=== PATIENT | male | born 1950 | race Caucasian/White ===

== ENCOUNTER 2016-05-28 08:00 | Outpatient (CLI) | payer OTHER, MEDICARE | END 2016-05-28 08:01 | disposition home or self-care (01) | DX: Z12.11 Encounter for screening for malignant neoplasm of colon (principal) ==

== ENCOUNTER 2016-07-12 15:34 | Outpatient (CLI) | payer MEDICARE | END 2016-07-12 15:35 | disposition home or self-care (01) | DX: Z12.5 Encounter for screening for malignant neoplasm of prostate (principal) | CPT/HCPCS: 36415; G0103 ==

== ENCOUNTER 2016-07-27 11:12 | Day surgery (SDC) | payer MEDICARE ==
[2016-07-27] MEDS ORDERED: LACTATED RINGERS 1,000 ML IV ONE ×2 (11:45→14:50)
[2016-07-27] MEDS ORDERED: MIDAZOLAM 2 MG/2 ML VIAL IVP ONE (14:25)
[2016-07-27] MEDS ORDERED: fentaNYL 250 MCG/5 ML VIAL IVP ONE (14:25)
== END 2016-07-27 11:13 | disposition home or self-care (01) ==
PROC: 0DJD8ZZ Inspection of Lower Intestinal Tract, Via Natural or Artificial Opening Endoscopic (ICD-10-PCS; principal; 2016-07-27 12:00)
DX: Z12.11 Encounter for screening for malignant neoplasm of colon (principal); K62.89 Other specified diseases of anus and rectum; K64.8 Other hemorrhoids; K57.30 Diverticulosis of large intestine without perforation or abscess without bleeding
CPT/HCPCS: G0121; J3010; J7120

== ENCOUNTER 2017-01-19 13:57 | Outpatient (CLI) | payer MEDICARE ==
--- NOTE | 2017-01-19 19:08 | XRAY Report ---
TWO-VIEW RIGHT SHOULDER: 01/19/2017 CLINICAL INDICATION: Pain. FINDINGS: Internal and external rotational views of the right shoulder demonstrate moderate osteoart hritis of the glenohumeral and acromioclavicular joints. The humeral head appears high-riding, sugge stive of chronic rotator cuff tear. There is no evidence of acute fracture or dislocation. No radio paque foreign body is seen in the soft tissues. IMPRESSION: MODERATE OSTEOARTHRITIS, WITH POSSIBLE CHRONIC ROTATOR CUFF TEAR. JOB #: [id number] EXT JOB #:[id number]
== END 2017-01-19 13:58 | disposition home or self-care (01) ==
LOC: DI.S 13:57
PROVIDERS: ATTEND Family Medicine
DX: M25.511 Pain in right shoulder (principal); M19.011 Primary osteoarthritis, right shoulder

== ENCOUNTER 2017-10-11 14:54 | Outpatient (CLI) | payer MEDICARE ==
--- NOTE | 2017-10-11 17:46 | Ultrasound Report ---
LIMITED PELVIC ULTRASOUND: 10/11/2017 HISTORY: Right inguinal pain. TECHNIQUE: Real-time scanning by the nitrogen operator with saved static images reviewed. FINDINGS: In the right inguinal region, no evidence of a cystic or solid mass, fluid collection, adenopathy, or hernia is identified. IMPRESSION: NEGATIVE RIGHT GROIN ULTRASOUND. TD: 10/11/2017 15:47
== END 2017-10-11 14:55 | disposition home or self-care (01) ==
LOC: DI 14:54
PROVIDERS: ATTEND Nurse Practitioner Family
DX: R10.31 Right lower quadrant pain (principal)
CPT/HCPCS: 76857

== ENCOUNTER 2017-10-19 07:47 | Outpatient (CLI) | payer MEDICARE ==
--- NOTE | 2017-10-19 17:51 | MRI Report ---
Procedure Date: 10/19/2017 Accession Number: [id number] / [id number] Procedure: MRI - Lumbar Spine W/O CPT Code: FULL RESULT: EXAM: MRI LUMBAR SPINE WITHOUT CONTRAST EXAM DATE: 10/19/2017 08:33 AM. CLINICAL HISTORY: Back pain, lumbar, inguinal pain, right. COMPARISON: None. TECHNIQUE: Multiplanar, multisequence T1-weighted and fluid-sensitive sequences of the lumbar spine from T12 to S1 without contrast. Other: None. FINDINGS: There is a mild degree of straightening of the normal lumbar lordosis. There is a mild degree of desiccation of the intervertebral disk spaces throughout the lumbar spine. There is a grade 1 anterolisthesis of L4 on L5. There is a mild decrease in the height of the disk at L1-L2, L2-L3, L3-L4, L4-L5 and L5-S1. The conus terminates at the inferior endplate level of T12. There is a mild degree at T12 hyperintensity consistent with Modic type I endplate degenerative change within the L4-L5 and L3-L4 endplates. There is spondylosis of the endplates demonstrated throughout the lumbar spine. There is a synovial cyst posterior to the right L5-S1 facet. There is atrophy of the paraspinal musculature which is greatest at the L1-L2 level. This is only partially within the provided [id number] (24, 601). Below the L1-L2 level the degree of paraspinal atrophy is reduced to minimal. There is no significant psoas atrophy on the left. The right psoas muscle is smaller than that of the right. This may potentially be within anatomical variation. The abdominal aorta is of normal caliber. There is a T2 hyperintense lesion of the interpolar region of the right kidney measuring 12 mm, and a smaller 3 mm hyperintensity of the interpolar region of the left kidney. These are consistent with simple-appearing renal cysts. L1-L2: There is a small disk osteophyte complex producing a mild central canal stenosis. There is mild ligamentum flavum hypertrophy. There is minimal left facet arthropathy. There is mild right and left foraminal stenosis. L2-L3: There is a small disk osteophyte complex producing a minimal central canal stenosis. There is mild right facet arthropathy. There is mild right and mild to moderate left foraminal stenosis. L3-L4: There is a small disk osteophyte complex abutting the sac producing a minimal central canal stenosis. There is mild right facet arthropathy. There is mild ligamentum flavum hypertrophy. There is moderate right and mild to moderate left foraminal stenosis. L4-L5: There is a small disk osteophyte complex abutting the sac. There is mild ligamentum flavum hypertrophy. There is a moderate to severe degree of right lateral recess stenosis secondary to a combination of right-sided facet arthropathy, ligamentum flavum hypertrophy, and a disk osteophyte. This contacts and may compress the traversing right L5 nerve root. Recommend correlation for right L5 radiculopathy. Overall, there is a mild to moderate central canal stenosis. There is mild to moderate bilateral facet arthropathy. There is mild to moderate right foraminal stenosis and there is moderate to severe left foraminal stenosis secondary to the extension of facet arthropathy into the left foraminal space. Recommend correlation for left L4 radicular symptoms. L5-S1: There is a small disk osteophyte complex with annular tear but without significant central canal stenosis. There is mild left and moderate right facet arthropathy. There is mild to moderate left and mild right foraminal stenosis. IMPRESSION: 1. There is a small disk osteophyte complex at L4-L5 which in combination with ligamentum flavum hypertrophy produces a moderate to severe right lateral recess stenosis and may potentially produce entrapment of the traversing right L5 nerve root. Recommend correlation for right L5 radiculopathy. There is also extension of facet arthropathy into the left foraminal space which appears to produce a moderate to severe left foraminal stenosis and may produce left L4 radicular symptoms. Recommend correlation. Overall, there is a mild to moderate central canal stenosis. 2. There is a small disk osteophyte complex at L3-L4 producing a minimal central canal stenosis. 3. There is a minimal central canal stenosis from a small disk osteophyte complex at L2-L3. 4. There is a small disk osteophyte complex producing a mild central canal stenosis at L1-L2. 5. There appears to be atrophy of the paraspinal musculature at the L1-L2 level. This is only partially in the provided [id number]. Below this level there appears to be little atrophy. Comment: The following findings are so common in adults without low back pain that while we report their presence, they must be interpreted with caution and in the context of the clinical situation. (Reference Laurak et al, Spine 2001) Prevalence of findings in patients without low back pain: Disk degeneration (any evidence): 92% Disk desiccation/T2 signal loss: 83% Disk height loss: 56% Disk bulge: 64% Disk protrusion: 32% Annular tear/high intensity zone: 38% RADIA
== END 2017-10-19 07:48 | disposition home or self-care (01) ==
LOC: DI 07:47
PROVIDERS: ATTEND Family Medicine
DX: M51.36 Other intervertebral disc degeneration, lumbar region (principal); M47.896 Other spondylosis, lumbar region; M48.061 Spinal stenosis, lumbar region without neurogenic claudication
CPT/HCPCS: 72148

== ENCOUNTER 2017-12-29 08:23 | Outpatient (CLI) | payer MEDICARE | END 2017-12-29 08:24 | disposition home or self-care (01) | LOC: LAB.R 08:23 | PROVIDERS: ATTEND Family Medicine | DX: L08.89 Other specified local infections of the skin and subcutaneous tissue (principal) | CPT/HCPCS: 87070; 87205 ==

== ENCOUNTER 2018-02-08 12:00 | Outpatient (CLI) | payer MEDICARE | END 2018-02-08 12:01 | disposition home or self-care (01) | LOC: LAB.R 12:00 | PROVIDERS: ATTEND Nurse Practitioner Family | DX: L08.89 Other specified local infections of the skin and subcutaneous tissue (principal) | CPT/HCPCS: 87640 ==

== ENCOUNTER 2018-03-29 08:00 | Outpatient (CLI) | payer MEDICARE | END 2018-03-29 08:01 | disposition home or self-care (01) | LOC: LAB.R 08:00 | PROVIDERS: ATTEND Nurse Practitioner Family | DX: Z22.322 Carrier or suspected carrier of Methicillin resistant Staphylococcus aureus (principal) | CPT/HCPCS: 87081 ==

== ENCOUNTER 2018-05-14 04:58 | Outpatient (CLI) | payer MEDICARE | END 2018-05-14 04:59 | disposition EMS.NT | LOC: EMS 04:58 | PROVIDERS: ATTEND Surgery | DX: R10.9 Unspecified abdominal pain (principal) ==

== ENCOUNTER 2018-10-10 11:22 | Day surgery (SDC) | payer MEDICARE ==
--- NOTE | 2018-10-10 11:06 | ANESTHESIA ---
Pre-Anesthesia VS, & Labs - Diagnosis B Carpal Tunnel Syndrome - Procedure B CTR Vital Signs: Last Vital Signs Temp 36.5 C 10/10/18 11:54 Pulse 68 10/10/18 11:54 Resp 20 10/10/18 11:54 BP 129/79 10/10/18 11:54 Pulse Ox 95 10/10/18 11:54 Height 6 ft 2 in - NPO >8 hours Home Medications and Allergies Home Medications: Ambulatory Orders No Known Home Medications 10/09/18 No Known Home Medications 10/09/18 Allergies/Adverse Reactions: Allergies Allergy/AdvReac Type Severity Reaction Status Date / Time No Known Drug Allergies Allergy Verified 10/09/18 09:23 Anes History & Medical History - Anesthetic History Anesthesia Complications: reports: No previous complications Family history of Anesthesia Complications: Denies Family history of Malignant Hyperthermia: Denies - Medical History Cardiovascular: reports: None Pulmonary: reports: None Gastrointestinal: reports: None Urinary: reports: Kidney stones Musculoskeletal: reports: Osteoarthritis Endocrine/Autoimmune: reports: None Skin: reports: Other - Surgical History Eyes Ears Nose Throat (EENT): Tonsil/Adenoidectomy Orthopedic: Arthroscopic surgery Exam General: Alert, Oriented x3, Cooperative Mouth Opening: Greater than 4 Fingerbreadths Mallampati classification: I Thyromental Distance: 4-6 cm Respiratory: Lungs clear Cardiovascular: Regular rate Neurological: Normal gait, Normal speech Mental/Cognitive Status: Alert/Oriented X3, Normal for patient Cognitive Status: Within normal limits Plan Anesthesia Type: MAC Consent for Procedure(s) Verified and Reviewed: Yes Code Status: Attempt Resuscitation ASA classification: 2-Mild systemic disease Is this case an emergency?: No
[~2018-10-10 11:22] MED LIST: BUPIVACAINE 0.25% PF 10 ML VIAL ONE; CEFAZOLIN SODIUM IN 0.9 % NACL 2 GM/100 ML BAG IV ONE; LIDOCAINE 1%-EPI 1:100000 20 ML MDV ONE
[2018-10-10] MEDS ORDERED: LACTATED RINGERS 1,000 ML IV ONE (11:53)
[2018-10-10] MEDS ORDERED: KETOROLAC 30 MG/ML VIAL IVP ONE (12:20)
[2018-10-10] MEDS ORDERED: ONDANSETRON 4 MG/2 ML VIAL IVP ONE (12:20)
[2018-10-10] MEDS ORDERED: KETAMINE 500 MG/10 ML VIAL IVP ONE (12:20)
[2018-10-10] MEDS ORDERED: PROPOFOL 200 MG/20 ML VIAL IVP ONE (12:20)
[2018-10-10] MEDS ORDERED: MIDAZOLAM 2 MG/2 ML VIAL IVP ONE (12:20)
[2018-10-10] MEDS ORDERED: LIDOCAINE-MPF 2% 5 ML VIAL IM ONE (12:20)
[2018-10-10] MEDS ORDERED: oxyCODONE 5 MG TABLET PO PRN (13:14)
--- NOTE | 2018-10-10 14:24 | OPERATIVE REPORT ---
DATE OF SERVICE: 10/10/2018 Physician: Jose Pina MD PREOPERATIVE DIAGNOSIS: Bilateral carpal tunnel syndrome. POSTOPERATIVE DIAGNOSIS: Bilateral carpal tunnel syndrome. PROCEDURE PERFORMED: Bilateral carpal tunnel releases. SURGEON: Jose Pina MD. ANESTHESIA: Local, MAC, Cesar Bowie. INDICATIONS FOR SURGERY: Patient is a 68-year-old male with progressive severe bilateral carpal tunn el syndrome, who has failed nonoperative treatment and is symptomatic enough to warrant surgery and h as failed nonoperative care. FINDINGS AT SURGERY: Patient's right carpal tunnel show extreme constriction and erythema of the con tents and the median nerve in the carpal tunnel area, whereas the left hand, but was nevertheless liban te tight. There were no other abnormalities noted in the tunnel. DESCRIPTION OF OPERATIVE PROCEDURE: Patient was taken to the operating room and was given conscious sedation by Cesar Bowie, after which he was given injections approximately 8 mL of a combination of 1% lidocaine with epinephrine and 0.25% Marcaine injected into each carpal tunnel and into the overl yousuf soft tissues in the palm. Following this, patient was sterilely prepped and draped in standard fashion. Surgical timeout was held and then surgery progressed on the right hand first utilizing a 1 .5 inch incision in the palm in line with the third webspace. This was taken through skin and subcut aneous tissue, and then carefully dissecting through the transverse carpal ligament, extending the re lease on this distal aspect to the superficial arch and the fatty tissue around it, sending the incis ion proximal to the area of the distal flexion crease of the wrist all under direct vision. The nerv e and contents were inspected and palpated and then flushed with irrigation and then closed with inte rrupted 4-0 nylon. Sterile dressings were applied and a small Tim wrap. The attention was then dire cted to the left hand where the identical surgery was performed, once again using a small palmar inci yvonne, 1.5 inches in length with a direct dissection down to the transverse carpal ligament, divided i n line with the incision. With inspection of contents and this time not finding quite as severe inje ction and redness of the nerve or contents and then proceeding with closure of the skin with 4-0 nylo n. Sterile dressings were applied to that hand. The patient was then taken from the OR to the [facility] room in stable condition. ESTIMATED BLOOD LOSS: Minimal. COMPLICATIONS: None. SPONGE AND NEEDLE COUNTS: Correct. TD: 10/10/2018 13:25
[2018-10-10 14:46] VITALS: BP 119/87
== END 2018-10-10 11:23 | disposition home or self-care (01) ==
LOC: SDS 11:22
PROVIDERS: ATTEND Orthopaedic Surgery
PROC: 01N50ZZ Release Median Nerve, Open Approach (ICD-10-PCS; 2018-10-10)
PROC: 01N50ZZ Release Median Nerve, Open Approach (ICD-10-PCS; principal; 2018-10-10 12:30)
DX: G56.03 Carpal tunnel syndrome, bilateral upper limbs (principal); Z86.14 Personal history of Methicillin resistant Staphylococcus aureus infection
CPT/HCPCS: 64721; J0690; J7120

== ENCOUNTER 2020-01-22 15:01 | Outpatient (CLI) | payer MEDICARE | END 2020-01-22 15:02 | disposition home or self-care (01) | LOC: COV 15:01 | PROVIDERS: ATTEND Family Medicine | DX: R50.9 Fever, unspecified (principal); R11.2 Nausea with vomiting, unspecified; Z20.828 Contact with and (suspected) exposure to other viral communicable diseases ==

== ENCOUNTER 2020-05-06 07:55 | Outpatient (CLI) | payer MEDICARE ==
[2020-05-06 15:06] LABS: BILIRUBIN,URINE NEGATIVE (NEGATIVE); GLUCOSE, URINE (UA) NEGATIVE (NEGATIVE); KETONES,URINE (UA) NEGATIVE (NEGATIVE); LEUKOCYTE ESTERASE, URINE NEGATIVE (NEGATIVE); NITRITE,URINE NEGATIVE (NEGATIVE); OCCULT BLOOD,URINE NEGATIVE (NEGATIVE); PH,URINE 5.5 PH (5.0-7.5); PROTEIN,URINE NEGATIVE (NEGATIVE); UROBILINOGEN,URINE 0.2 (NORMAL) E.U./dL (NORMAL)
[2020-05-06 15:09] LABS: BASOPHILS # (AUTO) 0.1 10^3/uL (0.0-0.1); BASOPHILS % (AUTO) 0.8 %; EOSINOPHILS # (AUTO) 0.3 10^3/uL (0.0-0.7); EOSINOPHILS % (AUTO) 4.4 %; HCT - HEMATOCRIT 44.2 % (42.0-52.0); HGB - HEMOGLOBIN 13.8 g/dL (14.0-18.0); LYMPHOCYTES # (AUTO) 1.9 10^3/uL (1.5-3.5); LYMPHOCYTES % (AUTO) 31.9 %; MEAN CORPUSCULAR HEMOGLOBIN 29.7 pg (27.0-31.0); MEAN CORPUSCULAR HGB CONC 31.2 g/dL (32.0-36.0); MEAN CORPUSCULAR VOLUME 95.3 fL (80.0-94.0); MEAN PLATELET VOLUME 10.8 fL (7.4-11.4); MONOCYTES # (AUTO) 0.6 10^3/uL (0.0-1.0); MONOCYTES % (AUTO) 10.4 %; NEUTROPHILS # (AUTO) 3.2 10^3/uL (1.5-6.6); NEUTROPHILS % (AUTO) 52.2 %; PLT - PLATELET COUNT 183 10^3/uL (130-450); RED BLOOD COUNT 4.64 10^6/uL (4.70-6.10); WHITE BLOOD COUNT 6.1 x10^3/uL (4.8-10.8)
[2020-05-06 15:19] LABS: CLARITY,URINE HAZY (CLEAR)
[2020-05-06 15:21] LABS: BACTERIA,URINE Moderate /HPF (None Seen); RBC,URINE 0-5 /HPF (0-5); SQUAMOUS EPITHELIAL CELL,UR RARE Squamous (<= Few)
[2020-05-06 15:43] LABS: ALBUMIN/GLOBULIN RATIO 1.5 (1.0-2.2); ALKALINE PHOSPHATASE 87 IU/L (42-121); ALT ALANINE AMINOTRANSFERASE 23 IU/L (10-60); AST ASPARTATE AMINOTRANSFERASE 20 IU/L (10-42); BILIRUBIN,TOTAL 0.7 mg/dL (0.2-1.0); BUN - BLOOD UREA NITROGEN 15 mg/dL (6-20); CALCIUM 9.1 mg/dL (8.5-10.3); CARBON DIOXIDE - CO2 26 mmol/L (21-32); CHLORIDE 108 mmol/L (101-111); CHOL/HDL RATIO 3.6 (<5.0); CHOLESTEROL 185 mg/dL; GFR - MDRD 73 (>89); GLUCOSE 102 mg/dL (70-100); HDL CHOLESTEROL 52 mg/dL; LDL CHOLESTEROL,CALCULATED 120 mg/dL; LDL/HDL RATIO 2.3 (<3.6); POTASSIUM 4.2 mmol/L (3.5-5.0); SODIUM 141 mmol/L (135-145); TOTAL PROTEIN 6.7 g/dL (6.7-8.2); TRIGLYCERIDES 63 mg/dL; VLDL CHOLESTEROL 13 mg/dL
== END 2020-05-06 07:56 | disposition home or self-care (01) ==
LOC: LAB.S 07:55
PROVIDERS: ATTEND Internal Medicine
DX: Z00.00 Encounter for general adult medical examination without abnormal findings (principal); R35.8 Other polyuria; Z12.5 Encounter for screening for malignant neoplasm of prostate
CPT/HCPCS: 36415; 80053; 80061; 81001; 85025; 87086; 87181; G0103; 83721; 84153

== ENCOUNTER 2021-01-01 09:44 | Outpatient (CLI) | payer MEDICARE | END 2021-01-01 09:45 | disposition home or self-care (01) | LOC: LAB.S 09:44 | PROVIDERS: ATTEND Internal Medicine | DX: Z53.9 Procedure and treatment not carried out, unspecified reason (principal); R35.8 Other polyuria ==

== ENCOUNTER 2021-01-20 10:12 | Outpatient (CLI) | payer MEDICARE | END 2021-01-20 10:13 | disposition home or self-care (01) | LOC: LAB.S 10:12 | PROVIDERS: ATTEND Internal Medicine | DX: N41.9 Inflammatory disease of prostate, unspecified (principal) | CPT/HCPCS: 36415; 84153 ==

== ENCOUNTER 2021-03-09 11:35 | Outpatient (CLI) | payer MEDICARE | END 2021-03-09 11:36 | disposition home or self-care (01) | LOC: LAB.S 11:35 | PROVIDERS: ATTEND Internal Medicine | DX: R20.0 Anesthesia of skin (principal) | CPT/HCPCS: 36415; 82607 ==

== ENCOUNTER 2022-08-25 07:00 | Outpatient (CLI) | payer MEDICARE ==
--- NOTE | 2022-08-25 14:49 | XRAY Report ---
PROCEDURE: Foot 3 View LT INDICATIONS: CONTUSION OF LEFT FOOT TECHNIQUE: 3 views of the foot were acquired. COMPARISON: None. FINDINGS: Bones: Nondisplaced fracture through the second and third metatarsal at the metatarsal neck. Small c alcaneal spur present. Normal bone mineralization. Soft tissues: No suspicious soft tissue calcifications or masses. IMPRESSION: Nondisplaced fracture through the second and third intermetatarsal neck. Reviewed by: Robert Hendrix MD on 08/25/2022 1:47 PM IRON Approved by: Robert Hendrix MD on 08/25/2022 1:47 PM AKDT Station ID: [id number]
== END 2022-08-25 23:59 | disposition home or self-care (01) ==
LOC: DI.S 07:00
PROVIDERS: ATTEND Emergency Medicine
DX: S90.32XA Contusion of left foot, initial encounter (principal); S92.325A Nondisplaced fracture of second metatarsal bone, left foot, initial encounter for closed fracture; S92.335A Nondisplaced fracture of third metatarsal bone, left foot, initial encounter for closed fracture

== ENCOUNTER 2022-08-30 15:50 | Outpatient (CLI) | payer MEDICARE ==
--- NOTE | 2022-08-30 12:12 | XRAY Report ---
PROCEDURE: Foot 3 View LT INDICATIONS: LEFT FOOT FRACTURE TECHNIQUE: 3 views of the foot were acquired. COMPARISON: 08/25/2022 FINDINGS: Bones: No fractures or dislocations. No suspicious bony lesions. Moderate calcaneal spur. Subacute oblique fracture through the third metatarsal shows remodeling the fracture lines and bridging callus Soft tissues: No suspicious soft tissue calcifications or masses. IMPRESSION: Healing third metatarsal fracture Calcaneal spur Reviewed by: Robert Hendrix MD on 08/30/2022 11:11 AM IRON Approved by: Robert Hendrix MD on 08/30/2022 11:11 AM IRON Station ID: [id number]
== END 2022-08-30 15:52 | disposition home or self-care (01) ==
LOC: DI.WOS 15:50
PROVIDERS: ATTEND Physician Assistant Surgical
DX: S92.335D Nondisplaced fracture of third metatarsal bone, left foot, subsequent encounter for fracture with routine healing (principal)

== ENCOUNTER 2022-09-27 08:00 | Outpatient (CLI) | payer MEDICARE ==
--- NOTE | 2022-09-27 11:39 | XRAY Report ---
PROCEDURE: Foot 3 View LT INDICATIONS: LEFT FOOT FRACTURE TECHNIQUE: 3 views of the foot were acquired. COMPARISON: 08/30/2022 FINDINGS: Bones: Increased conspicuity of the lateral bone fragment in the distal second metatarsal shaft [place] cent to the previously nondisplaced fracture. Similar appearance of the third metatarsal neck fractur e, with evidence of callus formation at this time. Scattered degenerative changes, and plantar calcaneal enthesopathy.]. Soft tissues: No other suspicious calcifications. IMPRESSION: Increased displacement of the bone fragment at the second metatarsal neck adjacent to the previously nondisplaced fracture. Similar appearance of the third metatarsal neck fracture with increased callus formation. Reviewed by: Remberto Ray MD on 09/27/2022 11:38 AM PDT Approved by: Remberto Ray MD on 09/27/2022 11:38 AM PDT Station ID: [id number]
== END 2022-09-27 23:59 | disposition home or self-care (01) ==
LOC: DI.WOS 08:00
PROVIDERS: ATTEND Physician Assistant Surgical
DX: S92.335A Nondisplaced fracture of third metatarsal bone, left foot, initial encounter for closed fracture (principal); S92.322A Displaced fracture of second metatarsal bone, left foot, initial encounter for closed fracture

== ENCOUNTER 2022-11-16 08:00 | Outpatient (CLI) | payer MEDICARE ==
--- NOTE | 2022-11-16 18:00 | XRAY Report ---
PROCEDURE: Foot 3 View LT INDICATIONS: LEFT FOOT FRACTURES TECHNIQUE: 3 views of the foot were acquired. COMPARISON: 09/27/2022 08/30/2022 FINDINGS: Bones: There is interval healing at second and third metatarsal neck fracture site with significant callus formation and partial bony union. No new fracture or dislocation. Left foot joint osteoarthrit ic changes are seen. Well-defined plantar and dorsal calcaneal enthesophytes are seen. No suspicious bony lesions. Soft tissues: No suspicious soft tissue calcifications or masses. IMPRESSION: Interval healing at the second and third metatarsal neck fracture site with stable left alignment. No new fracture or dislocation. Reviewed by: Jordan Maxwell MD on 11/16/2022 5:58 PM PDT Approved by: Jordan Maxwell MD on 11/16/2022 5:58 PM PDT Station ID: [id number]
== END 2022-11-16 23:59 | disposition home or self-care (01) ==
LOC: DI.WOS 08:00
PROVIDERS: ATTEND Physician Assistant Surgical
DX: S92.322D Displaced fracture of second metatarsal bone, left foot, subsequent encounter for fracture with routine healing (principal); S92.332D Displaced fracture of third metatarsal bone, left foot, subsequent encounter for fracture with routine healing